=== PATIENT | female | born 1935 | race Caucasian/White ===

== ENCOUNTER 2020-01-13 11:01 | Outpatient (CLI) | payer MEDICARE, OTHER ==
[~2020-01-13 11:01] MED LIST: ALLO300T PO; ASPI-614 PO; ATEN25TA PO; CARV3.1212 PO; CARV3.122 PO; CELE200C PO; CHOL3000 PO; DOXE10CA PO; ESTR1PAT SUBD; ESTR1PAT TD; FISH OIL OMEGA1 EACH PO; FURO20TA3 PO; FURO40TA6 PO; IBEROGAST; LEVO75CA2 PO; LOSA50TA14 PO; MULT1TAB11 PO; PRAV20TA2 PO
[2020-01-13] MEDS ORDERED: APIX5TAB PO (11:32)
[2020-01-13] MEDS ORDERED: FURO20TA3 PO (11:32)
[2020-01-13] MEDS ORDERED: ERGO2000 PO (11:32)
[2020-01-13] MEDS ORDERED: B CO1TAB14 PO (11:32)
[2020-01-13] MEDS ORDERED: ACET-1600 PO (11:32)
[2020-01-13] MEDS ORDERED: LEVO75TA5 PO (11:32)
[2020-01-13] MEDS ORDERED: VIT1CAPS11 PO (11:32)
[2020-01-13] MEDS ORDERED: CLIN150C14 PO (11:32)
[2020-01-13] MEDS ORDERED: DULO30CA2 PO (11:32)
[2020-01-13] MEDS ORDERED: CARB1DRO14 EACHEYE (11:32)
[2020-01-13] MEDS ORDERED: PRAV20TA2 PO (11:32)
[2020-01-13] MEDS ORDERED: CARV-39 PO (11:32)
[2020-01-13 13:02] LABS: ALBUMIN 3.7 g/dL (3.4-5.0); ANION GAP 7 mmol/L (5-15); CALCIUM 10.1 mg/dL (8.5-10.1); CHLORIDE 107 mmol/L (98-107)
[2020-01-13 13:06] LABS: ALANINE AMINOTRANSFERASE 23 U/L (12-78); ALKALINE PHOSPHATASE 132 U/L (45-117); BILIRUBIN,TOTAL 0.8 mg/dL (0.2-1.0); CREATININE 0.92 mg/dL (0.55-1.02)
== END 2020-01-13 23:59 | disposition home or self-care (01) ==
LOC: STAR 11:01
PROVIDERS: ATTEND Orthopaedic Surgery
DX: Z01.818 Encounter for other preprocedural examination (principal); I45.10 Unspecified right bundle-branch block; M19.011 Primary osteoarthritis, right shoulder; Z79.899 Other long term (current) drug therapy
CPT/HCPCS: 36415; 80053; 87081; 93005

== ENCOUNTER 2020-01-20 05:15 | Inpatient (IN) | payer OTHER, MEDICARE ==
[~2020-01-20] VITALS: Ht 152.4 cm; Wt 61.6 kg
[~2020-01-20 05:15] MED LIST changes: +ACET-1600 PO; +APIX5TAB PO; +B CO1TAB14 PO; +CARB1DRO14 EACHEYE; +CARV-39 PO; +CLIN150C14 PO; +DULO30CA2 PO; +ERGO2000 PO; +LEVO75TA5 PO; +VIT1CAPS11 PO
[2020-01-20] MEDS ORDERED: CLINDAMYCIN 150 MG/ML, 6ML ONE (05:54)
[2020-01-20] MEDS ORDERED: LACTATED RINGERS 1,000 ML IV SCH (06:02)
[2020-01-20] MEDS ORDERED: BUPIVACAINE LIPOSOME/PF 10ML INFIL ONE (06:18)
[2020-01-20] MEDS ORDERED: MIDAZOLAM 1 MG/ML, 2ML ONE (06:36)
[2020-01-20] MEDS ORDERED: FENTANYL PF 100 MCG/2ML ONE (06:36)
[2020-01-20] MEDS ORDERED: D5%-0.45% NACL 1,000 ML IV SCH (06:54)
[2020-01-20] MEDS ORDERED: PHENYLEPHRINE 10 MG/ML ONE (07:00)
[2020-01-20] MEDS ORDERED: ONDANSETRON 2MG/ML, 2ML IV PRN (07:00)
[2020-01-20] MEDS ORDERED: SENNA/DOCUSATE TABLET PO PRN (07:00)
[2020-01-20] MEDS ORDERED: morphine SULFATE 10 MG/ML, 1ML IV PRN (07:00)
[2020-01-20] MEDS ORDERED: OXYcodone IR 5MG TABLET PO PRN (07:00)
[2020-01-20] MEDS ORDERED: ACETAMINOPHEN 325 MG TABLET PO PRN (07:30)
[2020-01-20] MEDS ORDERED: PROMETHAZINE 25 MG/ML, 1ML IV PRN (07:30)
[2020-01-20] MEDS ORDERED: OXYcodone 5 MG/5 ML ORAL.SOL UDC PO PRN (07:30)
[2020-01-20] MEDS ORDERED: METOPROLOL 1 MG/ML, 5ML IV PRN (07:30)
[2020-01-20] MEDS ORDERED: hydrALAzine 20 MG/ML, 1ML IV PRN (07:30)
[2020-01-20] MEDS ORDERED: ALBUTEROL/IPRATROPIUM 2.5MG/0.5MG, 3 ML NPPB PRN (07:30)
[2020-01-20] MEDS ORDERED: FENTANYL PF 100 MCG/2ML IV PRN (07:30)
[2020-01-20] MEDS ORDERED: GLYCOPYRROLATE 0.2MG/1ML, 5ML ONE (08:04)
[2020-01-20] MEDS ORDERED: ROCURONIUM 10MG/ML,5ML ONE (08:04)
[2020-01-20] MEDS ORDERED: PROPOFOL 10 MG/ML, 20ML ONE (08:04)
[2020-01-20] MEDS ORDERED: CEFAZOLIN 1,000 MG ONE (08:04)
[2020-01-20] MEDS ORDERED: DEXAMETHASONE 4 MG/ML, 1ML ONE (08:04)
[2020-01-20] MEDS ORDERED: NEOSTIGMINE 1 MG/ML, 10ML ONE (08:04)
[2020-01-20] MEDS ORDERED: ONDANSETRON 2MG/ML, 2ML ONE (08:04)
[2020-01-20] MEDS ORDERED: DOCUSATE 100 MG CAPSULE PO SCH (09:00)
[2020-01-20] MEDS ORDERED: ACETAMINOPHEN 500 MG TABLET PO SCH (09:00)
[2020-01-20] MEDS ORDERED: CARVEDILOL 25 MG TABLET PO SCH (09:00)
[2020-01-20 14:23] VITALS: BP 129/73
[2020-01-20 14:26] VITALS: BP 106/64
[2020-01-20] MEDS ORDERED: FUROSEMIDE 20 MG TABLET PO SCH (15:00)
[2020-01-20] MEDS ORDERED: LEVOTHYROXINE 75 MCG TABLET PO SCH (15:00)
[2020-01-20] MEDS ORDERED: DULOXETINE 30 MG CAPSULE.DR PO SCH (15:00)
[2020-01-20] MEDS ORDERED: CLINDAMYCIN PMX 600MG/50ML 50 ML IVPB SCH (15:00)
[2020-01-20] MEDS ORDERED: ARTIFICIAL TEARS 15 DROP/ML BOTTLE EACHEYE SCH (16:00)
[2020-01-20] MEDS ORDERED: CHOLECALCIFEROL 1,000 UNIT TABLET PO SCH (21:00)
[2020-01-20] MEDS ORDERED: PRAVASTATIN 20 MG TABLET PO SCH (21:00)
[2020-01-20] MEDS ORDERED: APIXABAN 5 MG TABLET PO SCH (21:00)
[2020-01-21] MEDS ORDERED: LEVOTHYROXINE 75 MCG TABLET PO SCH (06:00)
== END 2020-01-20 15:10 | disposition home or self-care (01) | DRG 483 ==
LOC: ORIP 05:15 → 4NE 14:40 → DCLOUNGE 14:50
PROVIDERS: ADMIT Orthopaedic Surgery; ATTEND Orthopaedic Surgery
PROC: 3E0T3BZ Introduction of Anesthetic Agent into Peripheral Nerves and Plexi, Percutaneous Approach (ICD-10-PCS; 2020-01-20)
PROC: 0RRJ00Z Replacement of Right Shoulder Joint with Reverse Ball and Socket Synthetic Substitute, Open Approach (ICD-10-PCS; principal; 2020-01-20 07:00)
DX: M75.101 Unspecified rotator cuff tear or rupture of right shoulder, not specified as traumatic (principal); I10 Essential (primary) hypertension; Z95.0 Presence of cardiac pacemaker; E78.5 Hyperlipidemia, unspecified; F32.9 Major depressive disorder, single episode, unspecified; I48.0 Paroxysmal atrial fibrillation; Z88.0 Allergy status to penicillin
CPT/HCPCS: 73020; S0077; C1776; J0690; J1100; J2250; J2405; J2704; J2710; J3010; C1769; J2370; J7120

== ENCOUNTER 2020-09-07 09:01 | Day surgery (SDC) | payer MEDICARE, OTHER ==
[~2020-09-07] VITALS: Ht 152.4 cm; Wt 59.1 kg
[2020-09-07] MEDS ORDERED: SODIUM CHLORIDE 0.9% 500 ML IV PRN (09:30)
[2020-09-07] MEDS ORDERED: DRON400T PO (09:41)
[2020-09-07] MEDS ORDERED: CARV3.122 PO (09:41)
[2020-09-07 09:42] VITALS: BP 145/68
[2020-09-07] MEDS ORDERED: ZOLP-413 PO (09:42)
[2020-09-07] MEDS ORDERED: PROPOFOL 10 MG/ML, 20ML ONE (10:40)
[2020-09-07] MEDS ORDERED: SODIUM CHLORIDE FLUSH 10ML SYR IVF SCH (21:00)
== END 2020-09-07 12:04 | disposition home or self-care (01) ==
LOC: CACL 09:01
PROVIDERS: ATTEND Internal Medicine Cardiovascular Disease
DX: I48.0 Paroxysmal atrial fibrillation (principal); I35.0 Nonrheumatic aortic (valve) stenosis; I10 Essential (primary) hypertension; E78.2 Mixed hyperlipidemia; E03.9 Hypothyroidism, unspecified; Z79.01 Long term (current) use of anticoagulants; Z79.890 Hormone replacement therapy; Z79.899 Other long term (current) drug therapy; Z88.0 Allergy status to penicillin; Z88.5 Allergy status to narcotic agent; Z88.8 Allergy status to other drugs, medicaments and biological substances; Z95.0 Presence of cardiac pacemaker; Z98.890 Other specified postprocedural states
CPT/HCPCS: 92960; 93005; J2704